=== PATIENT | male | born 1995 | race Caucasian/White ===

== ENCOUNTER 2016-10-26 21:01 | Emergency (ER) | payer OTHER, BC ==
[2016-10-26 21:07] VITALS: BP 144/95; PULSE 84; RESP 16; TEMP 97.9; O2SAT 98
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
== END 2016-10-26 21:50 | disposition home or self-care (01) ==
DX: S63.502A Unspecified sprain of left wrist, initial encounter (principal); S39.91XA Unspecified injury of abdomen, initial encounter; V28.0XXA Motorcycle driver injured in noncollision transport accident in nontraffic accident, initial encounter; Y92.410 Unspecified street and highway as the place of occurrence of the external cause; Y99.8 Other external cause status; Y93.89 Activity, other specified